=== PATIENT | female | born 1955 | race Caucasian/White ===

== ENCOUNTER → 2017-02-17 | Outpatient (CLI) | payer OTHER | LOC: HYPER 07:12 | DX: I87.312 Chronic venous hypertension (idiopathic) with ulcer of left lower extremity (principal); L97.221 Non-pressure chronic ulcer of left calf limited to breakdown of skin; L97.821 Non-pressure chronic ulcer of other part of left lower leg limited to breakdown of skin; L85.3 Xerosis cutis; J45.909 Unspecified asthma, uncomplicated; I50.9 Heart failure, unspecified; K21.9 Gastro-esophageal reflux disease without esophagitis; M19.90 Unspecified osteoarthritis, unspecified site; M10.9 Gout, unspecified; M86.8X8 Other osteomyelitis, other site; F32.9 Major depressive disorder, single episode, unspecified; Z72.89 Other problems related to lifestyle ==

== ENCOUNTER → 2017-03-10 | Outpatient (CLI) | payer OTHER | LOC: HYPER 07:20 | DX: I87.312 Chronic venous hypertension (idiopathic) with ulcer of left lower extremity (principal); L97.821 Non-pressure chronic ulcer of other part of left lower leg limited to breakdown of skin; L97.221 Non-pressure chronic ulcer of left calf limited to breakdown of skin; J45.909 Unspecified asthma, uncomplicated; I50.9 Heart failure, unspecified; K21.9 Gastro-esophageal reflux disease without esophagitis; M19.90 Unspecified osteoarthritis, unspecified site; M86.9 Osteomyelitis, unspecified; F32.9 Major depressive disorder, single episode, unspecified; Z72.89 Other problems related to lifestyle; Z87.01 Personal history of pneumonia (recurrent) ==

== ENCOUNTER → 2017-03-31 | Outpatient (CLI) | payer OTHER | LOC: HYPER 07:11 | DX: I87.312 Chronic venous hypertension (idiopathic) with ulcer of left lower extremity (principal); L97.221 Non-pressure chronic ulcer of left calf limited to breakdown of skin; R60.0 Localized edema; R21 Rash and other nonspecific skin eruption; L85.3 Xerosis cutis; J45.909 Unspecified asthma, uncomplicated; I50.9 Heart failure, unspecified; K21.9 Gastro-esophageal reflux disease without esophagitis; M19.90 Unspecified osteoarthritis, unspecified site; M10.9 Gout, unspecified; M86.68 Other chronic osteomyelitis, other site; F32.9 Major depressive disorder, single episode, unspecified; Z72.89 Other problems related to lifestyle ==

== ENCOUNTER → 2017-04-28 | Outpatient (CLI) | payer OTHER | LOC: HYPER 04-27 07:05 | DX: I87.312 Chronic venous hypertension (idiopathic) with ulcer of left lower extremity (principal); L97.821 Non-pressure chronic ulcer of other part of left lower leg limited to breakdown of skin; L97.221 Non-pressure chronic ulcer of left calf limited to breakdown of skin; R21 Rash and other nonspecific skin eruption; L85.3 Xerosis cutis; I50.9 Heart failure, unspecified; J45.909 Unspecified asthma, uncomplicated; Z87.01 Personal history of pneumonia (recurrent); K21.9 Gastro-esophageal reflux disease without esophagitis; M19.90 Unspecified osteoarthritis, unspecified site; F32.9 Major depressive disorder, single episode, unspecified; M86.8X8 Other osteomyelitis, other site; Z72.89 Other problems related to lifestyle ==

== ENCOUNTER → 2017-06-23 | Outpatient (CLI) | payer OTHER | LOC: HYPER 05-26 07:00 | DX: I87.312 Chronic venous hypertension (idiopathic) with ulcer of left lower extremity (principal); L97.821 Non-pressure chronic ulcer of other part of left lower leg limited to breakdown of skin; L97.221 Non-pressure chronic ulcer of left calf limited to breakdown of skin; S81.802A Unspecified open wound, left lower leg, initial encounter; S81.801A Unspecified open wound, right lower leg, initial encounter; S91.102A Unspecified open wound of left great toe without damage to nail, initial encounter; S31.829A Unspecified open wound of left buttock, initial encounter; J45.909 Unspecified asthma, uncomplicated; I50.9 Heart failure, unspecified; K21.9 Gastro-esophageal reflux disease without esophagitis; M19.90 Unspecified osteoarthritis, unspecified site; M10.9 Gout, unspecified; M86.9 Osteomyelitis, unspecified; F32.9 Major depressive disorder, single episode, unspecified; Z72.89 Other problems related to lifestyle; Z87.01 Personal history of pneumonia (recurrent); X58.XXXA Exposure to other specified factors, initial encounter; Y92.89 Other specified places as the place of occurrence of the external cause; Y93.89 Activity, other specified; Y99.8 Other external cause status ==

== ENCOUNTER → 2017-08-05 | Outpatient (CLI) | payer OTHER | LOC: HYPER 07-21 11:41 | DX: S81.801D Unspecified open wound, right lower leg, subsequent encounter (principal); S81.802D Unspecified open wound, left lower leg, subsequent encounter; I87.2 Venous insufficiency (chronic) (peripheral); L85.3 Xerosis cutis; J45.909 Unspecified asthma, uncomplicated; I50.9 Heart failure, unspecified; K21.9 Gastro-esophageal reflux disease without esophagitis; M19.90 Unspecified osteoarthritis, unspecified site; M10.9 Gout, unspecified; M86.9 Osteomyelitis, unspecified; F32.9 Major depressive disorder, single episode, unspecified; Z72.89 Other problems related to lifestyle; X58.XXXD Exposure to other specified factors, subsequent encounter ==

== ENCOUNTER 2021-06-29 12:57 | Inpatient (IN) | payer OTHER ==
[~2021-06-29] VITALS: Ht 175.3 cm; Wt 89.4 kg
--- NOTE | ~2021-06-29 | EMS ---
[address] [address] EMS Patient Care Report Name: ODALIS GALLARDO Room #: 456-P ADM IN M.R.#: [id number] Admission: 06/29/21 Attend Phys: Pop Chester MD Discharge: Date of : 53 Report #: [id number] THIS REPORT FOR: //name// Report Transmitted: 06/30/2021 05:24 EMS Care Summary [facility] MED-ACT Incident [id number] @ 06/29/2021 12:10 Incident Location [address] [place] [address] Patient ODALIS GALLARDO Female, 65 Years 1955 Patient Address [address] [place] [address] Patient History Other,Chronic Obstructive Pulmonary Disease (COPD),Cardiac - Stent,Atrial Fibrillation,Alcohol Abuse, Patient Allergies Other drug allergy, Patient Medications Aspirin, Potassium, Hydrocodone, Diltiazem, Digoxin, Oxygen, Albuterol, Famotidine, Allopurinol, Buspirone, Ranitidine, Chief Complaint I'm more short of air than normal Disposition Transported No Lights/[place] Reason Breathing Problem Transported To [facility] [address] [place] [address] EMS Patient Care Report Name: ODALIS GALLARDO Room #: 456-P ADM IN Rl#: [id number] Admission: 06/29/21 Attend Phys: Pop Chester MD Discharge: Date of : 53 Report #: [id number] Arrive on-scene for a call for difficulty breathing to assist [facility] who went OOS-mechanical upon arriving at the scene. We find the patient in [facility]'s care, sitting in a wheelchair in no apparent acute distress. [facility] reports that the patient has been having an increase in her shortness of breath over the last several days and went to [facility] yesterday, but left prior to being seen as "the wait was too long". [facility] states the patient would like to be transported to [facility] today. The patient denies any fever or chills. The patient states she is normally on 2-3lpm O2 but today she has been on 4lpm. 12-lead is done prior to our arrival by [facility] and shows no acute changes. Patient is able to stand and sit on our cot with some assistance and is secured for transport. Uneventful transport to [facility] with patient on a continued 4lpm. Patient care is transferred to ER staff in #12. Initial Vitals @12:45P: 95,R: 16,BP: 135/80,SpO2: 99, @12:50P: 85,R: 16,BP: 120/82,SpO2: 100, @12:37P: 92,R: 18,BP: 133/95,Pain: 0/10,Temp: 98.8F,SpO2: 100, Impression Shortness of breath Procedures @12:24Surgical Mask on PatientResponse: Unchanged Timeline 12:02,Call Received 12:02,Psap Call 12:10,Dispatched 12:11,En Route 12:17,On Scene 12:22,At Patient 12:24,Surgical Mask on Patient,Response: Unchanged 12:36,Depart Scene 12:37,BP: 133/95 M,PULSE: 92,RR: 18 R,SPO2: 100 Ox,ETCO2: ,BG: ,PAIN: 0,GCS: , 12:45,BP: 135/80 M,PULSE: 95,RR: 16 R,SPO2: 99 Ox,ETCO2: ,BG: ,PAIN: ,GCS: , 12:50,BP: 120/82 M,PULSE: 85,RR: 16 R,SPO2: 100 Ox,ETCO2: ,BG: ,PAIN: ,GCS: , 12:53,At Destination 13:12,Call Closed Disclaimer v1.1 Copyright 2020 [employer] This EMS Care Summary contains data elements from the applicable legal record (which may be displayed differently). It is designed to provide pertinent information for the following purposes: continuity of care, clinical quality, [address] [address] EMS Patient Care Report Name: ODALIS GALLARDO Room #: 456-P ADM IN M.R.#: [id number] Admission: 06/29/21 Attend Phys: Pop Chester MD Discharge: Date of : 53 Report #: [id number] and state data reporting. The complete legal record is available to ED staff and administrators of the receiving hospital in ES's Patient Tracker. All data is provided "as is."
[2021-06-29 12:58] VITALS: BP 117/30
[2021-06-29 13:31] LABS: BASOPHILS 0.3 % (0.0-2.0); HEMATOCRIT 28.8 % (37.0-47.0); HEMOGLOBIN 9.6 gm/dL (12.0-15.0); LYMPHOCYTES 8.7 % (24.0-44.0); MCHC 33.2 g/dL (28.0-37.0); MCV 96.4 fL (80.0-100.0); MONOCYTES 9.1 % (1.0-8.0); PLATELET COUNT 267 thou/uL (150-400); POLYS 77.9 % (36.0-66.0); RBC 2.99 mil/uL (4.20-5.00); RDW 16.3 % (10.5-14.5); WBC 6.5 thou/uL (4.0-11.0)
[2021-06-29 13:38] LABS: CALCIUM 9.1 mg/dL (8.5-10.1); CREATININE 0.7 mg/dL (0.6-1.0); POTASSIUM 3.8 mmol/L (3.5-5.1)
[2021-06-29 13:44] LABS: ALBUMIN 2.9 g/dL (3.4-5.0); TOTAL BILIRUBIN 0.9 mg/dL (0.2-1.0); TOTAL PROTEIN 6.8 g/dL (6.4-8.2)
[2021-06-29 14:33] LABS: URINE BILIRUBIN NEGATIVE (Negative); URINE BLOOD 2+ (Negative); URINE COLOR YELLOW; URINE GLUCOSE-RANDOM* NEGATIVE (Negative); URINE KETONES NEGATIVE (Negative); URINE PROTEIN (DIPSTICK) 1+ (Negative); URINE UROBILINOGEN 0.2 E.U./dl (0.2-1.0)
[2021-06-29 14:36] LABS: URINE CLARITY CLOUDY; URINE LEUKOCYTES-REFLEX 3+ (Negative); URINE NITRITE-REFLEX POSITIVE (Negative)
[2021-06-29 14:41] LABS: CASTS None Seen /LPF (None Seen); CRYSTALS None Seen /LPF (None Seen); SQUAMOUS 0-3 Few /LPF (0-3); URINE RBC 3-10 Few /HPF (NONE SEEN); URINE WBC-REFLEX >25 Many /HPF (0-5)
[2021-06-29 17:59] LABS: FOLIC ACID 18.8 ng/mL (8.6-58.9)
[2021-06-29 19:19] LABS: % SATURATION 37 % (20-39); IRON 89 ug/dL (50-170); TIBC 238 ug/dL (250-450)
[2021-06-30 00:55] VITALS: BP 128/54
[2021-06-30 01:43] VITALS: BP 150/79
[2021-06-30 01:45] LABS: ABSOLUTE NEUTROPHILS 7.1 thou/uL (1.4-8.2); BASOPHILS 0.5 % (0.0-2.0); HEMATOCRIT 28.6 % (37.0-47.0); HEMOGLOBIN 9.4 gm/dL (12.0-15.0); LYMPHOCYTES 3.1 % (24.0-44.0); MCH 31.4 pg (26.0-34.0); MCHC 32.7 g/dL (28.0-37.0); MCV 95.8 fL (80.0-100.0); MONOCYTES 1.2 % (1.0-8.0); PLATELET COUNT 261 thou/uL (150-400); POLYS 94.2 % (36.0-66.0); RBC 2.98 mil/uL (4.20-5.00); RDW 16.4 % (10.5-14.5); WBC 7.6 thou/uL (4.0-11.0)
[2021-06-30 01:56] LABS: CALCIUM 8.9 mg/dL (8.5-10.1); MAGNESIUM 1.8 mg/dL (1.8-2.4); POTASSIUM 4.1 mmol/L (3.5-5.1)
[2021-06-30 02:06] VITALS: BP 122/69
--- NOTE | 2021-06-30 04:09 | NUR ---
PT ADMITTED TO THE UNIT WITH C/O SOA AND UTI.PT IS A/O X4.PT IS FROM HOME LIVES IN AN APARTMENT ALONE AND USES A WHEELCHAIR AT HOME.PT HAS MULTIPLE SCRATCHES ON BLE AND BUE AND WOUND ON CHEST AND BUTTOCKS WITH REDNESS.IV ACCESS IN LFA SL.PT C/O PAIN AND PAIN MANAGED WITH FENTANYL.ADMISSION HX AND ASSESSMENTS DONE AND PICTURES TAKEN.WILL CONTINUE TO MONITOR PER POC
--- NOTE | 2021-06-30 07:28 | EKG ---
[address] [address] ELECTROCARDIOGRAM REPORT Name: ODALIS GALLARDO Room #: 456-P ADM IN M.R.#: [id number] Admission: 06/29/21 Attend Phys: Pop Chester MD Discharge: Date of : 53 Report #: [id number] [facility] ED Test Date: 2021-06-29 Test Time: 13:07:58 Pat Name: ODALIS GALLARDO Department: Room: 456 Gender: F Therapeutic Program Worker: IG : 1955 Requested By: Tremayne Arrington Order Number: [id number] : David Garza Measurements Intervals [place] Rate: 89 P: RI: QRS: 31 QRSD: 113 T: 21 QT: 440 QTc: 536 Interpretive Statements Atrial fibrillation Incomplete right bundle branch block Prolonged QT interval No previous ECG available for comparison Electronically Signed On 06-30-2021 7:28:38 CDT by David Garza [email or web address] <ELECTRONICALLY SIGNED> By: David Garza MD, [facility] 06/30/21 0728 1307 1307 David Garza MD, FACC /EPI
[2021-06-30] MEDS ORDERED: DILTIAZEM ER180 M2 PO (07:47)
[2021-06-30] MEDS ORDERED: DIGOX125 MCG PO (07:51)
[2021-06-30] MEDS ORDERED: BUSPIRONE HCL5 MG PO (07:52)
[2021-06-30] MEDS ORDERED: VENLAFAXINE HC150 M1 PO (07:52)
[2021-06-30 08:04] VITALS: BP 136/73
[2021-06-30 16:48] VITALS: BP 135/79
[2021-06-30] MEDS ORDERED: FAMOTIDINE 20 M20 MG PO (17:40)
[2021-06-30] MEDS ORDERED: VITAMIN B-1100 M2 PO (17:41)
[2021-06-30] MEDS ORDERED: METOLAZONE 2.52.5 MG PO (17:41)
[2021-06-30] MEDS ORDERED: BUMEX2 MG PO (17:44)
[2021-06-30] MEDS ORDERED: KLOR-CON M2020 MEQ PO (17:45)
[2021-06-30] MEDS ORDERED: FOLIC ACID1 MG PO (17:46)
[2021-06-30] MEDS ORDERED: ALLOPURINOL 30300 M1 PO (17:46)
[2021-06-30] MEDS ORDERED: COLACE100 MG PO (17:47)
--- NOTE | 2021-06-30 18:50 | NUR ---
ASSUMED CARE OF PT AT 0700. PT IS AOX4 WITH VSS. REST IN ROOM THROUGHOUT THE DAY. COMPLAINS OF CONCERN SURROUNDING HER LUNG FUNCTION WHICH SHE UPDATED MD ABOUT. PT HAS MULTIPLE SCABS ALONG BODY SHICH BARRIER CREAM WAS ORDERED FOR IN THE AFTERNOON. PT AND OT WAITING ON MD TEAM TO DECIDE IF ORTHO WILL BE INPATIENT OR OUTPT. NOT OOB AT THIS TIME.
[2021-06-30 19:57] VITALS: BP 147/84
--- NOTE | 2021-07-01 02:50 | NUR ---
PT CARE ASSUMED WUTH PT IN BED .PT IS A/O X4 .PT IS UP WITH X2 ASSIST.PT IS ABLE TO REPOSITION SELF IN BED WITH MINIMUM ASSISTANCE.IV ACCESS ON LH SL.PT IS ON 4L OF O2 VIA NC AND USES O2 AT HOME WITH BASELINE OF 2.PT HAS BREATHING TREATMENT.PT C/O PAIN AND PAIN MANAGED WITH NORCO.WILL CONTINUE TO MONITOR PER POC
[2021-07-01 06:52] LABS: HEMATOCRIT 28.7 % (37.0-47.0); HEMOGLOBIN 9.5 gm/dL (12.0-15.0); MCH 33.1 pg (26.0-34.0); MCHC 33.2 g/dL (28.0-37.0); MCV 99.7 fL (80.0-100.0); RBC 2.88 mil/uL (4.20-5.00); RDW 16.7 % (10.5-14.5); WBC 8.3 thou/uL (4.0-11.0)
[2021-07-01 07:20] VITALS: BP 142/84
[2021-07-01 07:22] LABS: CREATININE 0.8 mg/dL (0.6-1.0); POTASSIUM 4.9 mmol/L (3.5-5.1)
[2021-07-01] MEDS ORDERED: DILTIAZEM HCL60 MG PO (12:50)
--- NOTE | 2021-07-01 15:41 | NUR ---
PT ADMITTED RELATED TO PNA, DYSPNEA, AND FALL. CM REVIEWED CHART AND SPOKE WITH CARE TEAM. CM MET WITH PT AT BEDSIDE YESTERDAY. PT INDICATED SHE RESIDES ALONE IN AN APARTMENT WITH NO STEPS. PT INDICATED THAT SHE HAS A FWW, WC, AND HOME O2 THROUGH [employer] FOR HOUSE USE. PT INDICATED THAT SHE HAD BEEN AT RECENTLY AND HAD RETURNED HOUSE WITH [facility]. PT INDICATED SHE HAS AN ORTHO APPOINTMENT THIS MONDAY 07/02 BUT THAT SHE WAS TRYING TO GET IT RESCHEDULED FOR TUESDAY. 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 PT INDICATED THAT SHE PLANS TO RETURN HOME AND RESUME SERVICES WITH [employer] ONCE MEDICALLY STABLE. CM CALLED [employer] AND THEY INDICATED THAT THEY HAD GOTTEN REFERRAL FROM [facility]. LOOKS LIKE PT MAY HAVE BEEN THERE SKILLED IN THE RECENT PAST. CM FOLLOWING REGARDING DC PLANNING.
[2021-07-01 15:45] VITALS: BP 131/80
--- NOTE | 2021-07-01 18:39 | NUR ---
ASSUMED CARE OF PT AT 0700. THROUGHOUT THE AM ASSESSED PT WITH CARE TEAM INCLUDING PT/OT/MD AND CINDER CRUSHER OPERATOR. PT SEEMS TO BE ALERT AND ORIENTED BUT WITH A POOR HISTORY OF RECENT EVENTS. PT MAY ALSO BE SOMEWHAT MANIPULATIVE. SOME STORIES ARE UNSURE AND SOME ARE CONFLICTING, POSSIBLY DELUSIONAL. PT HAD CT IN AM AND RESTED IN ROOM THROUGHOUT REST OF EVENING, REFUSING TO WORK WITH THERAPIES D/T FRACTURED LEG. PAIN CONTROLLED WITH ORAL AND IV PAIN MEDS. VITALS STABLE THROUGHOUT THE DAY. HOME MEDS RESTARTED AND GIVEN. CLEANED MULTIPLE TIMES, NOW RESTING IN BED. WILL UPDATE FILING WRITER RN.
[2021-07-01 19:58] VITALS: BP 121/74
--- NOTE | 2021-07-02 05:43 | NUR ---
patient on 3l of oxygen no soa or distress noted. patient turned q 2 hours. patient is bedrest. pain controlled this shift. patient in bed asleep at this time breathing regular and unlaoured.
[2021-07-02 06:24] VITALS: BP 123/78
[2021-07-02 07:18] VITALS: BP 119/66
[2021-07-02 15:36] VITALS: BP 126/60
--- NOTE | 2021-07-02 15:38 | NUR ---
PT REFUSED THERAPY EVALS AGAIN TODAY. CM FAXED CLINICAL TO [facility] INDICATING THAT PT WANTS TO RESUME SERVICES WITH THEM UPON POSSIBLE DC HOME THIS WEEKEND. CM FOLLOWING REGARDING DC PLANNING. PT WILL LIKELY NEED TRANSPORT HOME WITH 02 ONCE MEDICALLY STABLE.
[2021-07-02 17:34] LABS: HEMATOCRIT 31.1 % (37.0-47.0); HEMOGLOBIN 9.8 gm/dL (12.0-15.0); MCH 30.5 pg (26.0-34.0); MCHC 31.5 g/dL (28.0-37.0); MCV 96.7 fL (80.0-100.0); RBC 3.22 mil/uL (4.20-5.00); RDW 16.8 % (10.5-14.5); WBC 9.5 thou/uL (4.0-11.0)
[2021-07-02 17:45] LABS: POTASSIUM 3.8 mmol/L (3.5-5.1)
--- NOTE | 2021-07-02 19:51 | NUR ---
Assumed pt care this am, pt refused to work with PT and OT , labs and blood sugar checks. Pt is non compliant, poc followed. Pain is managed with medications partial relief is noted. Endorsed to the night nurse.
[2021-07-02 20:05] VITALS: BP 136/74
--- NOTE | 2021-07-03 04:14 | NUR ---
Pt A/OX4,VSS. C/o pain to RLE medicated per EMAR with relief reported. Continent of bladder,purewick in place with adequate output. Abrasions on BUE/BLE open to air,dsg on chest wall C/D/I.Resting quietly w/o any distress noted. Fall precautions in place,will continue to monitor pt.
[2021-07-03 06:33] LABS: HEMATOCRIT 29.4 % (37.0-47.0); HEMOGLOBIN 9.5 gm/dL (12.0-15.0); MCH 31.4 pg (26.0-34.0); MCHC 32.2 g/dL (28.0-37.0); MCV 97.4 fL (80.0-100.0); RBC 3.02 mil/uL (4.20-5.00); RDW 16.9 % (10.5-14.5); WBC 6.3 thou/uL (4.0-11.0)
[2021-07-03 06:47] LABS: CALCIUM 8.6 mg/dL (8.5-10.1); CREATININE 1.3 mg/dL (0.6-1.0); POTASSIUM 3.9 mmol/L (3.5-5.1)
[2021-07-03 07:57] VITALS: BP 135/76
--- NOTE | 2021-07-03 15:59 | NUR ---
CARE TEAM INDICATED THAT PT WILL LIKELY BE MEDICALLY STABLE TO DC HOME TOMORROW. [facility] CAN ACCEPT PT UPON DC. THEY INDICATED THEY WILL LIKELY DO A SOC TUESDAY PT HAD RESCHEDULED HER OP ORTHO APPOINTMENT AT FOR TUESDAY. FAX DC ORDERS TO [facility] AT CALL TO NOTIFY OF DC AT . PT WILL LIKELY NEED VAN TRANSPORT HOME WITH O2. CALL [facility] AT TO ARRANGE TRANSPORT.
[2021-07-03 17:13] VITALS: BP 141/81
--- NOTE | 2021-07-03 19:58 | NUR ---
Assumed pt care this am, vs stable. Pain is managed with medications , refused blood sugar checks and q2 turns. Wound care done, diet and medications are tolerated well. Endorsed to the night nurse.
[2021-07-03 20:05] VITALS: BP 142/84
--- NOTE | 2021-07-04 04:20 | NUR ---
Pt. rested quietly during the night when checked on during frequent rounds. She was given pain meds for c/o right leg pain (see emar) with some relief noted. Continues to c/o sore mouth from thrush and nystatin swish given as ordered. Bed alarm is on.
[2021-07-04 08:04] VITALS: BP 121/72
[2021-07-04 08:11] VITALS: BP 121/72
[2021-07-04] MEDS ORDERED: NYSTATIN100000 UNI SW&SWALLOW (14:47)
[2021-07-04] MEDS ORDERED: HYDROCODON-ACE1 EAC7 PO (14:48)
[2021-07-04] MEDS ORDERED: MIRALAX17 GM PO (14:49)
[2021-07-04 15:25] VITALS: BP 121/72
[2021-07-04 16:04] VITALS: BP 120/67
--- NOTE | 2021-07-04 17:34 | NUR ---
Assumed pt care this am vs stable, refuses Q2 turns and plan of care. Non compliant with NWB and brace required for right knee. Pain managed with medications. Always asking for more, tries to manipulate MD into giving her requested medication, name dropping previous MD stating "Dr. Chester said you would give me the pain meds I need and the others..." POC followed, [facility] set up and faxed to [phone]. Transport set up with [facility], awiting greens picker.
[2021-07-04 22:23] VITALS: BP 129/66
--- NOTE | 2021-07-04 23:19 | NUR ---
Pt. discharged to her apartment via stretcher. Pt. was given po pain pill earlier for c/o leg pain (see emar) with relief noted. No other complaints upon discharge.
--- NOTE | 2021-07-09 09:54 | HC ---
[facility] [place] [address] CONSULTATION Name: ODALIS GALLARDO Room #: 456-P [facility] IN M.R.#: [id number] Admission: 06/29/21 Attend Phys: Pop Chester MD Discharge: 07/04/21 Date of : 53 Report #: [id number] THIS REPORT FOR: cc: Patricia Claire Shanna R. DO Althoff, Jeffrey R. MD ~ DATE OF SERVICE: 06/30/2021 CHIEF COMPLAINT: Chest wall surgical versus traumatic wound. HISTORY OF PRESENT ILLNESS: This is a 65-year-old chronically ill female patient with a history of atrial fibrillation, pulmonary hypertension, who was admitted to the hospital with multiple medical issues. She was noted to have multiple small ulcerations on her arms, buttocks, and lower legs as well as a surgical wound versus a traumatic wound to her chest wall. The patient is unclear, she thinks that chest wound may have occurred with the handle from her walker. She is uncertain as to why she has ulcerations on her arms, legs and buttocks. PAST MEDICAL HISTORY: Prior history of atrial fibrillation, incomplete right bundle branch block, COPD, hypertension, congestive heart failure. MEDICATIONS: Include diltiazem, digoxin, venlafaxine, buspirone. ALLERGIES: METOPROLOL. FAMILY HISTORY: Noncontributory. REVIEW OF SYSTEMS: CONSTITUTIONAL: Denies fever, chills, weight loss. NEUROLOGICAL: The patient denies focal weakness, numbness, tingling. EYES: The patient denies visual changes, redness or drainage. ENT: The patient denies earache, nasal drainage or sore throat. CARDIOVASCULAR: The patient denies chest pain, palpitations or diaphoresis. PULMONARY: The patient denies cough, shortness of breath. GASTROINTESTINAL: No nausea, vomiting, diarrhea or abdominal pain. ORTHOPEDIC: The patient denies pain, but does have some swelling and ulceration of the lower extremities. Other systems in a 14-point systems are negative. PHYSICAL EXAMINATION: VITAL SIGNS: At this time include temperature of 36.4, pulse 113, respiration 19, blood pressure 135/79. GENERAL: This is a well-developed female patient who appears in minimal distress. HEENT: Head is normocephalic. Nose and throat clear. [address] [address] CONSULTATION Name: ODALIS GALLARDO Room #: 456-P [facility] IN .R.#: [id number] Admission: 06/29/21 Attend Phys: Pop Chester MD Discharge: 07/04/21 Date of : 53 Report #: [id number] NECK: Supple. LUNGS: Diminished. HEART: Regular rate and rhythm. CHEST WALL: Demonstrates what appears to be either traumatic versus surgical wound in the lower sternal region. There is hypertrophic granulation tissue, but no evidence of infection. No exposure of deep structure. ABDOMEN: Soft, nontender. EXTREMITIES: Demonstrate multiple small excoriations that appear to be related to picking such as with neurodermatitis, although the patient denies this. LABORATORY DATA: Include sodium of 135, potassium 4.1, chloride 99, CO2 of 29, BUN 16, creatinine 1.0, glucose 121. White blood cell count 7.6 with a hemoglobin of 9.4. CLINICAL IMPRESSION: 1. Traumatic versus surgical wound to the chest wall. 2. Abrasion/possible neurodermatitis to the upper and lower extremities and buttocks. 3. Acute hypoxic respiratory failure. RECOMMENDATIONS: We will recommend Aquacel Ag in a bordered foam daily to the chest wall. We will plan to bring silver nitrate and apply that to the hypertrophic granulation tissue tomorrow. Recommend AmLactin lotion to her skin. Hopefully, that will reduce some of the itching and I have cautioned her about picking at her skin to avoid that as much as possible. I appreciate being asked to see her in consultation. <ELECTRONICALLY SIGNED> By: Hoang Tejeda MD 07/09/21 0954 1334 0220 Hoang Tejeda MD /nt
== END 2021-07-04 23:15 | disposition home or self-care (01) | DRG 189 ==
LOC: ER 12:57 → 4W 16:36 → EROBS 16:36 → 4W 06-30 01:40
PROVIDERS: Internal Medicine Pulmonary Disease; Nurse Practitioner; ADMIT Hospitalist; ATTEND Hospitalist
DX: J96.21 Acute and chronic respiratory failure with hypoxia (principal); I42.9 Cardiomyopathy, unspecified; N39.0 Urinary tract infection, site not specified; E44.0 Moderate protein-calorie malnutrition; I50.22 Chronic systolic (congestive) heart failure; S82.141A Displaced bicondylar fracture of right tibia, initial encounter for closed fracture; J44.9 Chronic obstructive pulmonary disease, unspecified; M79.661 Pain in right lower leg; I27.20 Pulmonary hypertension, unspecified; S31.102A Unspecified open wound of abdominal wall, epigastric region without penetration into peritoneal cavity, initial encounter; I48.91 Unspecified atrial fibrillation; Z20.822 Contact with and (suspected) exposure to COVID-19; Z60.2 Problems related to living alone; R53.81 Other malaise; K59.00 Constipation, unspecified; G47.00 Insomnia, unspecified; G47.33 Obstructive sleep apnea (adult) (pediatric); S30.810A Abrasion of lower back and pelvis, initial encounter; S80.812A Abrasion, left lower leg, initial encounter; I11.0 Hypertensive heart disease with heart failure; S80.811A Abrasion, right lower leg, initial encounter; B96.4 Proteus (mirabilis) (morganii) as the cause of diseases classified elsewhere; D63.8 Anemia in other chronic diseases classified elsewhere; Z99.81 Dependence on supplemental oxygen; Z79.891 Long term (current) use of opiate analgesic; Z68.29 Body mass index [BMI] 29.0-29.9, adult; Z88.8 Allergy status to other drugs, medicaments and biological substances; Z47.89 Encounter for other orthopedic aftercare; Z23 Encounter for immunization; W18.39XA Other fall on same level, initial encounter; Y93.89 Activity, other specified; Y92.89 Other specified places as the place of occurrence of the external cause; Y99.8 Other external cause status
CPT/HCPCS: 10047